=== PATIENT | male | born 1975 | race Caucasian/White ===

== ENCOUNTER 2019-08-19 13:28 | Emergency (ER) | payer OTHER ==
[~2019-08-19] VITALS: Ht 193 cm; Wt 145.1 kg
[2019-08-19 13:55] VITALS: BP 179/104
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
--- NOTE | 2019-08-19 17:29 | Diagnostic Imaging Report ---
Indication: Pain, trauma Technique: Spiral acquisitions obtained through the cervical spine. No IV contrast utilized. Multiplanar reconstructions were generated. Total dose length product 434 mGycm. CTDIvol(s) 16 mGy. Dose reduction achieved using automated exposure control. Comparison: none Findings: No prevertebral soft tissue swelling. Bony alignment is normal. Vertebral body heights are preserved. No acute fractures. No dislocations. The disc spaces are preserved. There are degenerative proliferative changes of the anterior atlantoaxial joint. At C2-3, there is mild to moderate narrowing of the left neural foramen due to uncinate and facet hypertrophy. At C3-4, there is moderate narrowing of the right neural foramen due to facet and uncinate hypertrophy. At C4-5, there is mild bilateral neural foraminal stenosis. At C5-6, there is moderate to severe right, mild left neural foraminal stenosis At C6-7, there is moderate to severe bilateral neural foraminal stenosis. At the remaining disc levels, no significant disc bulge or protrusion, spinal stenosis, or neural foraminal narrowing. The included extraspinal soft tissues are unremarkable. The included upper aerodigestive tract is unremarkable. Impression: No acute bony trauma Multilevel degenerative changes, as detailed on a level by level basis above The CT scanner at [facility] is accredited by the [employer] and the scans are performed using protocols designed to limit radiation exposure to as low as reasonably achievable to attain images of sufficient resolution adequate for diagnostic evaluation.
[2019-08-19] MEDS ORDERED: CYCLOBENZAPRINE10 MG ORAL (17:42)
[2019-08-19] MEDS ORDERED: NAPROXEN500 M2 ORAL (17:42)
[2019-08-19 17:52] VITALS: BP 156/89
--- NOTE | 2019-08-19 18:51 | Diagnostic Imaging Report ---
Indications: Reason For Exam: TRAUMA Technique: 3 views of the thoracic spine Comparison: None Findings: There is a mild anterior wedge compression fracture deformity of the T9 vertebral body. This results in approximately 20% height loss. Slight wedge deformity of the adjacent vertebral bodies is probably due to degenerative remodeling rather than trauma. Pedicles are intact. Sacral arches are preserved. The remaining bony alignment is normal. Impression: Probable age-indeterminate wedge compression fracture deformity of the T9 vertebral body Degenerative changes as described
--- NOTE | 2019-08-19 18:53 | Diagnostic Imaging Report ---
Indication: Pain, trauma Technique: 3 views of the lumbar spine Comparison: None Findings: Vertebral body heights are preserved. There is degenerative disc narrowing at L5-S1. The remaining disc spaces are preserved. Pedicles are intact. Sacral arches are preserved. Sacroiliac joint spaces are preserved Impression: Degenerative changes, as described. No acute bony trauma
== END 2019-08-19 17:54 | disposition home or self-care (01) ==
LOC: EMR 14:25
DX: S16.1XXA Strain of muscle, fascia and tendon at neck level, initial encounter (principal); M54.9 Dorsalgia, unspecified; V43.52XA Car driver injured in collision with other type car in traffic accident, initial encounter; Y92.410 Unspecified street and highway as the place of occurrence of the external cause; Z91.041 Radiographic dye allergy status
CPT/HCPCS: 72020; 72070; 72125; 99284